=== PATIENT | male | born 1995 | race Caucasian/White ===

== ENCOUNTER 2017-04-06 23:11 | Emergency (ER) | payer OTHER ==
[~2017-04-06] VITALS: Ht 165.1 cm; Wt 70.5 kg
[2017-04-06 23:14] VITALS: Ht 165.1 cm; Wt 70.5 kg
[2017-04-07] MEDS ORDERED: LIDOCAINE 2%/EPI MPF (SDV) 20 ML VIAL INJ STA (00:52)
[2017-04-07] MEDS ORDERED: IBUPROFEN 800 MG TAB PO STA (00:52)
[2017-04-07] MEDS ORDERED: DIPHTH/TET/ACEL PERTUSS (ADULT) 0.5 ML VIAL IM ONE (01:00)
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
== END 2017-04-07 02:39 | disposition home or self-care (01) ==
LOC: FTE 23:11
DX: S01.81XA Laceration without foreign body of other part of head, initial encounter (principal); V18.4XXA Pedal cycle driver injured in noncollision transport accident in traffic accident, initial encounter; Z23 Encounter for immunization
CPT/HCPCS: 12011; 90715; Z7610; 90471

== ENCOUNTER 2017-04-14 18:09 | Emergency (ER) | payer OTHER ==
[~2017-04-14] VITALS: Ht 167.6 cm; Wt 67.0 kg
[2017-04-14 18:12] VITALS: Ht 167.6 cm; Wt 67.0 kg
[2017-04-14 19:21] VITALS: BP 118/72; PULSE 72; RESP 20; TEMP 98.6
--- NOTE | 2017-04-14 23:07 | ERD ---
ER Documentation Chief Complaint Date/Time DATE: 04/14/17 TIME: 23:04 Chief Complaint Patient here for suture removal HPI 21-year-old young man here for suture removal which were placed of the left brow about 5 days ago. He denies any redness or swelling to the skin, no discharge. Patient denies fevers or chills. ROS All systems reviewed and are negative except as per history of present illness. Allergies Allergies: Coded Allergies: No Known Allergy (Unverified , 04/14/17) PMhx/Soc Medical and Surgical Hx: pt denies Medical Hx, pt denies Surgical Hx Hx Alcohol Use: No Hx Substance Use: No Hx Tobacco Use: No Smoking Status: Never smoker FmHx Family History: No diabetes Physical Exam Vitals Vital Signs Date Time Temp Pulse Resp B/P Pulse Ox O2 Delivery O2 Flow Rate FiO2 04/14/17 19:21 98.6 72 20 118/72 100 Room Air 04/14/17 18:12 98.3 101 20 144/67 99 Physical Exam GENERAL: Well-developed, well-nourished, well-hydrated, in no apparent distress , looks nontoxic in appearance HEENT: Moist mucous membranes, pink conjunctiva, no cervical spine tenderness or step-off deformities, no goiter, no jaundice or icterus, extraocular movements intact without pain. No submandibular induration, and no pharyngeal erythema NEURO: Alert and oriented 3, cranial nerves II through XII intact bilaterally, pupils equal round reactive to light, no focal deficits or facial asymmetry, sensation intact distally Strength 5/5 in upper and lower extremities bilaterally CARDIAC: Regular rate and rhythm, no murmurs rubs or gallops LUNGS: Clear bilaterally no wheezing crackles or stridor ABDOMEN: Soft nontender, no guarding, no rigidity, no rebound, no psoas sign no obturator sign. Normoactive bowel sounds SKIN: Warm and dry to touch, no abrasions, contusions, or hematomas, no lacerations, no ecchymosis, no target lesions, and without ulcers EXTREMITIES: No clubbing cyanosis or edema, calves are bilaterally symmetrical, no Homans sign, no popliteal cord sign. Distal pulses equal and bilateral PSYCH: Normal affect without agitation or irritability Procedures/MDM Site was inspected, no active infection noted. 4 sutures were removed from the brow and skin remained well approximated and dry. Patient tolerated procedure well. Patient feels much better at this time, and vital signs are normal, symptoms have improved. I did give strict instructions to return to the ED if symptoms continue or worsen, patient will otherwise follow-up with primary care physician. Patient understood instructions and agreed to plan. Disclaimer: Inadvertent spelling and grammatical errors are likely due to EHR/ dictation software use and do not reflect on the overall quality of patient care. Also, please note that the electronic time recorded on this note does not necessarily reflect the actual time of the patient encounter. Departure Diagnosis: Primary Impression: Encounter for removal of sutures Condition: Good Patient Instructions: Suture Removal, No Complication GABRIELLE MARIA MD Apr 14, 2017 23:07
== END 2017-04-14 19:23 | disposition home or self-care (01) ==
LOC: FTE 18:09
DX: Z48.02 Encounter for removal of sutures (principal)
CPT/HCPCS: 99281